=== PATIENT | male | born 1985 | race Caucasian/White ===

== ENCOUNTER 2017-02-05 19:49 | Inpatient (IN) | payer MEDICAID ==
[~2017-02-05] VITALS: Ht 185.4 cm; Wt 102.0 kg
[2017-02-05 20:32] LABS: HEMATOCRIT 49.1 % (39.2-51.8); HEMOGLOBIN 16.8 g/dL (13.7-18.0); WHITE BLOOD COUNT 10.1 x10^3/uL (3.4-10)
[2017-02-05 20:44] LABS: ASPARTATE AMINO TRANSFERASE 18 U/L (15-37); BLOOD UREA NITROGEN 22 mg/dL (7-18)
[2017-02-05] MEDS ORDERED: MORPHINE SULFATE 4 MG/ML, 1ML ONE ×2 (20:53→22:01)
[2017-02-05] MEDS ORDERED: ONDANSETRON 2MG/ML, 2ML ONE (20:53)
[2017-02-05] MEDS: MORPHINE SULFATE 4 MG/ML, 1ML IVPush PRN ×2 (21:00→22:05)
[2017-02-05] MEDS ORDERED: ONDANSETRON 2MG/ML, 2ML IVPush ONE (21:00)
[2017-02-05] MEDS ORDERED: SODIUM CHLORIDE FLUSH 10ML SYR IVF ONE (21:00)
[2017-02-05] MEDS ORDERED: SODIUM CHLORIDE 0.9% 1,000ML IVBOLUS ONE (21:00)
[2017-02-05] MEDS ORDERED: OMNIPAQUE 350 MG/ML, 100ML BOTTLE ONE (21:16)
[2017-02-05] MEDS ORDERED: CEFOTETAN PMX 1GM/50ML 50 ML IV ONE (22:00)
[2017-02-05] MEDS ORDERED: CEFOTETAN PMX 1GM/50ML 50 ML ONE (22:10)
[2017-02-05] MEDS ORDERED: SODIUM CHLORIDE 0.9% 1,000 ML IV ONE (22:25)
[2017-02-05] MEDS ORDERED: PROMETHAZINE 25 MG/ML, 1ML IM PRN (22:30)
[2017-02-05] MEDS ORDERED: ONDANSETRON 2MG/ML, 2ML IVPush PRN (22:30)
[2017-02-05] MEDS ORDERED: SODIUM CHLORIDE FLUSH 10ML SYR IVF PRN (22:30)
[2017-02-05] MEDS ORDERED: MORPHINE SULFATE 4 MG/ML, 1ML IVPush PRN ×2 (22:30)
[2017-02-06] MEDS: MORPHINE SULFATE 4 MG/ML, 1ML IVPush PRN ×2 (00:46→11:27)
[2017-02-06] MEDS: LACTATED RINGERS 1,000 ML IV SCH ×2 (00:47→09:00)
[2017-02-06] MEDS ORDERED: ONDANSETRON 2MG/ML, 2ML IVPush PRN (01:00)
[2017-02-06 01:48] VITALS: BP 107/67
[2017-02-06] MEDS ORDERED: ALBUTEROL SULFATE 2.5 MG/3 ML ONE (06:36)
[2017-02-06] MEDS ORDERED: BUPIVACAINE/PF 0.5% ONE (07:08)
[2017-02-06] MEDS ORDERED: EPINEPHRINE 1 MG/ML, 1ML ONE (07:08)
[2017-02-06] MEDS ORDERED: MIDAZOLAM 1 MG/ML, 2ML ONE (07:10)
[2017-02-06] MEDS ORDERED: FENTANYL PF 250 MCG/5ML ONE (07:10)
[2017-02-06] MEDS ORDERED: SUCCINYLCHOLINE 20 MG/ML, 10ML ONE ×2 (07:27→08:55)
[2017-02-06] MEDS ORDERED: CEFOTETAN 2 GM ONE (07:27)
[2017-02-06] MEDS ORDERED: BUPIVACAINE/PF-EPI 0.5% 1:200K IM ONE (07:49)
[2017-02-06] MEDS ORDERED: LORazepam 2 MG/ML, 1ML IVPush PRN (08:00)
[2017-02-06] MEDS ORDERED: OXYcodone 5 MG/5 ML ORAL.SOL UDC PO PRN (08:00)
[2017-02-06] MEDS ORDERED: METOPROLOL 1 MG/ML, 5ML IV PRN (08:00)
[2017-02-06] MEDS ORDERED: PROMETHAZINE 25 MG/ML, 1ML IV PRN (08:00)
[2017-02-06] MEDS ORDERED: ACETAMINOPHEN 325 MG TABLET PO PRN (08:00)
[2017-02-06] MEDS ORDERED: FENTANYL PF 100 MCG/2ML IV PRN (08:00)
[2017-02-06] MEDS ORDERED: hydrALAzine 20 MG/ML, 1ML IV PRN (08:00)
[2017-02-06] MEDS ORDERED: ALBUTEROL SULFATE 2.5 MG/3 ML NPPB PRN (08:00)
[2017-02-06] MEDS ORDERED: MEPERIDINE/PF 50 MG/ML ONE (08:23)
[2017-02-06] MEDS: MEPERIDINE/PF 25MG/0.5ML IVPush PRN ×2 (08:24→08:39)
[2017-02-06] MEDS ORDERED: OXYcodone 5 MG/5 ML ORAL.SOL UDC ONE (08:31)
[2017-02-06] MEDS ORDERED: HYDROmorphone 2 MG/ML, 1ML ONE (08:42)
[2017-02-06] MEDS: HYDROmorphone 1 MG/ML, 1ML IV PRN ×2 (08:45→08:59)
[2017-02-06] MEDS ORDERED: GLYCOPYRROLATE 0.2MG/1ML, 5ML ONE (08:55)
[2017-02-06] MEDS ORDERED: NEOSTIGMINE 1 MG/ML, 10ML ONE (08:55)
[2017-02-06] MEDS ORDERED: ROCURONIUM 10 MG/ML,10ML ONE (08:55)
[2017-02-06] MEDS ORDERED: DEXAMETHASONE 4 MG/ML, 1ML ONE (08:55)
[2017-02-06] MEDS ORDERED: CEFAZOLIN 1,000 MG ONE (08:55)
[2017-02-06] MEDS ORDERED: ONDANSETRON 2MG/ML, 2ML ONE (08:55)
[2017-02-06] MEDS ORDERED: PROPOFOL 10 MG/ML, 20ML ONE (08:55)
[2017-02-06] MEDS ORDERED: OXYC-302 PO (09:57)
[2017-02-06] MEDS ORDERED: POLY17PO5 PO (09:58)
[2017-02-06] MEDS ORDERED: OXYcodone/APAP 5/325MG TABLET PO PRN (10:00)
[2017-02-06] MEDS ORDERED: CEFOTETAN PMX 2GM/50ML 50 ML IV SCH (10:00)
[2017-02-06 12:57] VITALS: BP 117/71
[2017-02-06] MEDS ORDERED: FLU VACC QS2017-18 (36MOS+) UP/PF 0.5 ML IM-VACC ONE (15:00)
== END 2017-02-06 14:40 | disposition home or self-care (01) | DRG 339 ==
LOC: ED 22:37 → EDIP 22:43 → 4NOR 23:22
PROVIDERS: ADMIT Colon & Rectal Surgery; ATTEND Colon & Rectal Surgery
PROC: 0DTJ4ZZ Resection of Appendix, Percutaneous Endoscopic Approach (ICD-10-PCS; principal; 2017-02-06 07:30)
DX: K35.3 Acute appendicitis with localized peritonitis (principal); R17 Unspecified jaundice; Z88.8 Allergy status to other drugs, medicaments and biological substances; Z23 Encounter for immunization
CPT/HCPCS: 36415; 74177; 80053; 81003; 85025; 88304; 90686; 94640; J0171; J0690; J1100; J1170; J2175; J2250; J2405; J2704; J2710; J3010; J3490; Q9967; J0330; J7030; J7120; S0074

== ENCOUNTER 2017-02-08 21:53 | Emergency (ER) | payer MEDICAID ==
[~2017-02-08] VITALS: Ht 185.4 cm; Wt 101.1 kg
[~2017-02-08 21:53] MED LIST: OXYC-302 PO; POLY17PO5 PO
[2017-02-08] MEDS ORDERED: FAMOTIDINE 20 MG TABLET PO ONE (22:30)
[2017-02-08] MEDS ORDERED: FAMOTIDINE 20 MG TABLET ONE (22:55)
[2017-02-09 00:08] VITALS: BP 130/93
== END 2017-02-09 00:11 | disposition home or self-care (01) ==
LOC: ED 22:45
DX: R21 Rash and other nonspecific skin eruption (principal); Z88.8 Allergy status to other drugs, medicaments and biological substances
CPT/HCPCS: 99283; Q0177